=== PATIENT | female | born 1970 | race Caucasian/White ===

== ENCOUNTER 2020-09-19 15:37 | Outpatient (CLI) | payer OTHER | END 2020-09-19 15:38 | disposition home or self-care (01) | LOC: CTENTCT 15:37 | PROVIDERS: ATTEND Student in an Organized Health Care Education/Training Program | DX: J32.9 Chronic sinusitis, unspecified (principal) | CPT/HCPCS: 70486 ==

== ENCOUNTER 2020-10-02 12:40 | Day surgery (SDC) | payer OTHER ==
[2020-10-01 13:56] VITALS: BMI 35.8
[~2020-10-02 12:40] MED LIST: Dexamethasone 20 MG/5 ML VIAL ONE; Ondansetron PF 4 MG/2 ML Vial ONE; PHENYLEPHRINE-NS 100 MCG/ML 10 ML SYRINGE ONE; PROPOFOL 200 MG/20 ML VIAL ONE; Rocuronium Bromide 10 MG/ML (10ML VIAL) ONE
[2020-10-02] MEDS ORDERED: AFRIN NASAL MIST 15 ML BOT ONE ×2 (13:38→13:48)
[2020-10-02] MEDS ORDERED: XYLOCAINE 2%-EPI 1:100,000 20 ML VIAL ONE (13:48)
[2020-10-02] MEDS ORDERED: Midazolam HCl 2 mg/2 ml Vial ONE ×2 (13:51)
[2020-10-02] MEDS ORDERED: Fentanyl 100 MCG/2 ML VIAL ONE (13:51)
[2020-10-02] MEDS ORDERED: Acetaminophen 500 MG TAB ONE (13:51)
[2020-10-02] MEDS ORDERED: Scopolamine 1.5 mg/72 hour Patch ONE (13:51)
[2020-10-02] MEDS ORDERED: HYDROmorphone 0.5 MG/0.5 ML SYRINGE ONE (13:52)
[2020-10-02] MEDS ORDERED: Phenylephrine 10 MG/ML VIAL ONE (14:41)
[2020-10-02] MEDS ORDERED: Promethazine HCl 25 MG/ML VIAL ONE (17:43)
--- NOTE | 2020-10-05 07:22 | OP ---
DATE OF PROCEDURE: 10/02/2020 PREOPERATIVE DIAGNOSES: Chronic rhinosinusitis, septal deviation, turbinate hypertrophy, migue bullosa, nasal congestion, and nasal valve collapse. PROCEDURES PERFORMED: Bilateral image-guidance endoscopic sinus surgery, balloon dilation of frontal sinus, frontal sinusotomy, takedown of migue bullosa, balloon dilation of bilateral maxillary sinuses, balloon dilation of bilateral sphenoid sinuses, left-sided anterior ethmoidectomy, nasal valve repair, and bilateral reduction of inferior turbinates, and image-guided endoscopic sinus surgery. PERMIT: Procedures, benefits, risks including those of bleeding, infection, injury from anesthesia, allergic reactions, cerebrospinal fluid leak necessitating revision or repair and alternatives were reviewed with the patient and family who expressed understanding of the information. The consent form was signed and witnessed, and a paper copy of the consent form is available for review in the paper chart. INDICATIONS: This is a 49-year-old female patient, presenting with bilateral nasal aperture adhesions, nasal congestion, turbinate hypertrophy, nasal valve collapse, chronic rhinosinusitis, and septal deviation with migue bullosa, frontal sinus outflow tracts, presenting to the clinic for operative treatment. PHOTOGRAPHER LITHOGRAPHIC: None. FINDINGS: Bilateral nasal ala aperture synechiae, turbinate hypertrophy, nasal valve collapse, deviated septum, left migue bullosa. DESCRIPTION OF OPERATION: The patient was brought to the operating room and laid supine on the operating room table. General endotracheal anesthesia was administered and the septum and synechiae bilaterally were infiltrated with 1% lidocaine with 1:100,000 epinephrine. After this was completed, the synechiae were preventing access to the nasal cavity and the synechiae were lysed with a 15- blade scalpel bilaterally and Afrin soaked cottonoids were placed to control bleeding. After this, image guidance was then calibrated and used for localization throughout the case. The Afrin pledgets were then removed and attention was turned to the septum. The nasal cavity was evaluated endoscopically and there was a significant superiorly deviated septum and attention was then turned to the septum. 1% lidocaine with 1:100,000 epinephrine was injected into the septum and a Sean incision was made on the left side with an attempt to evaluate the mucoperichondrial flap on the left side. The mucoperichondrial flap was elevated in part; however, there was significant scarring and synechiae and there was some quadrangular cartilage that was missing. After significant effort was used to gently elevate the mucoperichondrial flap on the left side, which was unsuccessful given the scarring, an attempt to do an endoscopic septoplasty to remove some cartilage on the right superior deviation; however, only minimal cartilage could be removed and given that there was risk for perforation, the septoplasty was aborted and attention was turned to the left frontal sinus outflow tract. There were significant ethmoid bulla and Agger Nasi cell and attempts were used to use the frontal sinus seeker and balloon dilator to locate the frontal sinus outflow tract; however, that was unsuccessful, so the ethmoid bulla, anterior ethmoid air cells, and Agger Nasi cell had to be taken down with a combination of an up-biting Diaz-Cut, More, and microdebrider and after the air cells were taken down and removed, the frontal sinus outflow tract was identified and with the help of the balloon dilator and transilluminator located and the frontal sinus seeker located the frontal sinus. The frontal sinusotomy was completed with a mushroom punch and a 30-degree endoscope confirmed that the frontal sinus outflow tract was widely patent and open and additional air cells of the anterior ethmoid were taken down, taking care not to strip the mucosa and leave a patent frontal sinus outflow tract. After this was completed, attention was turned to the right side, where the frontal sinus seeker quickly located the frontal sinus outflow tract and the natural os of the frontal sinus and a balloon dilator was inserted and then dilated both the frontal sinus outflow tract and the floor of the frontal sinus, and a 30-degree endoscope was used to confirm adequate dilation. After this was completed, the migue bullosa on the left side was still obstructive, so 1% lidocaine with 1:100,000 epinephrine was injected into the middle turbinates and a 15 blade was used to cut in half the migue bullosa vertically and the medial aspect was taken down with the endoscopic scissors and a small amount of mucosa was removed with the microdebrider. At this point, attention was then turned to the sphenoid sinuses. The left sphenoid sinus was identified with the straight image-guided suction and then the balloon dilator was then inserted into the sphenoid sinus os and then balloon dilated. The right side was then identified with the image-guided straight suction as well and when the space of the sphenoid sinus os was located, the balloon was then inserted and adequately dilated. Next, attention was turned to the left maxillary sinus. The balloon dilator was then bent for the maxillary sinus configuration and placed in the natural os of the maxillary sinus and then balloon dilated with confirmation via transillumination as well as with image guidance suction. The same procedure was performed on the right side with a balloon dilator inserted in the maxillary sinus and confirmed with transillumination and with image guidance and then the balloon dilator was dilated and the maxillary sinus was open adequately. After this was completed, 1% lidocaine with 1:100,000 epinephrine was injected into the anterior-inferior aspect of the bilateral inferior turbinates. A stab incision was then made on the left anterior-inferior turbinate with the oscillating microdebrider and with the turbinate blade and oscillating microdebrider, the mucosa was elevated over the erectile tissue and the oscillating microdebrider was used to remove the central erectile tissue and adequately reduce the left inferior turbinate. The same procedure was performed on the right side with a small stab incision on the anterior-inferior aspect of the middle turbinate with the oscillating microdebrider, turbinate blade, and the mucosa was then elevated off the turbinates and then the erectile tissue was removed centrally with the oscillating microdebrider until adequate patency was seen. At this point, the septum was seen to be deviated to the right superiorly; however, this was not significantly obstructive for breathing, though there was a significant deviation and the septum had to be pressed to the left with a Ellis elevator in order to complete the balloon sinus procedure. Given the risk and difficulty of elevating the mucoperichondrial flaps, the decision was made to use a 4-0 Barron needle to use a mattress suture to suture the septum together and [place] splints were placed bilaterally with an anterior silk anchor medialized the septum and would be left in place in order to keep the septum in the midline as it was relocated into the center with a Ellis elevator. At this point, attention was then turned to the nasal valve repair. The nasal valve collapse was then marked with a marking pen bilaterally and then the implant was then inserted with help of a double-prong skin hook into the left nasal ala, taking care to stay in the correct plane lateral to the nasal bone, but right onto the nasal bone and after the implant was then placed and deployed, the nasal valve was then seen to be dilated. The same procedure was performed on the right side with adequate dilation of the nasal valve and the implants were in good position, there was no bleeding and the patient's nasal cavity was suctioned and oral cavity was evaluated and the patient was turned back to Anesthesia for emergence. Job ID: [id number]
== END 2020-10-02 19:39 | disposition home or self-care (01) ==
LOC: SDC 12:40
PROVIDERS: ATTEND Student in an Organized Health Care Education/Training Program
PROC: 09QX4ZZ Repair Left Sphenoid Sinus, Percutaneous Endoscopic Approach (ICD-10-PCS; principal; 2020-10-02)
PROC: 09QS4ZZ Repair Right Frontal Sinus, Percutaneous Endoscopic Approach (ICD-10-PCS; principal; 2020-10-02)
PROC: 099T8ZZ Drainage of Left Frontal Sinus, Via Natural or Artificial Opening Endoscopic (ICD-10-PCS; principal; 2020-10-02)
PROC: 09SM0ZZ Reposition Nasal Septum, Open Approach (ICD-10-PCS; principal; 2020-10-02)
PROC: 8E09XBZ Computer Assisted Procedure of Head and Neck Region (ICD-10-PCS; principal; 2020-10-02)
PROC: 09QR4ZZ Repair Left Maxillary Sinus, Percutaneous Endoscopic Approach (ICD-10-PCS; principal; 2020-10-02)
PROC: 09BV8ZZ Excision of Left Ethmoid Sinus, Via Natural or Artificial Opening Endoscopic (ICD-10-PCS; principal; 2020-10-02)
PROC: 09TL0ZZ Resection of Nasal Turbinate, Open Approach (ICD-10-PCS; principal; 2020-10-02)
PROC: 09QW4ZZ Repair Right Sphenoid Sinus, Percutaneous Endoscopic Approach (ICD-10-PCS; principal; 2020-10-02)
PROC: 09QK0ZZ Repair Nasal Mucosa and Soft Tissue, Open Approach (ICD-10-PCS; principal; 2020-10-02)
PROC: 09QQ4ZZ Repair Right Maxillary Sinus, Percutaneous Endoscopic Approach (ICD-10-PCS; principal; 2020-10-02)
DX: J32.9 Chronic sinusitis, unspecified (principal); J34.2 Deviated nasal septum; J34.3 Hypertrophy of nasal turbinates; J34.89 Other specified disorders of nose and nasal sinuses; E11.42 Type 2 diabetes mellitus with diabetic polyneuropathy; F32.9 Major depressive disorder, single episode, unspecified; E78.5 Hyperlipidemia, unspecified; F41.9 Anxiety disorder, unspecified; G43.909 Migraine, unspecified, not intractable, without status migrainosus; Z79.1 Long term (current) use of non-steroidal anti-inflammatories (NSAID); Z79.82 Long term (current) use of aspirin; Z79.84 Long term (current) use of oral hypoglycemic drugs; Z79.899 Other long term (current) drug therapy; Z88.8 Allergy status to other drugs, medicaments and biological substances; Z91.018 Allergy to other foods
CPT/HCPCS: J1100; J1170; J2250; J2370; J2405; J2550; J2704; J3010